=== PATIENT | female | born 1945 | race Caucasian/White ===

== ENCOUNTER → 2017-02-20 | Day surgery (SDC) | payer MEDICARE ==
[~2017-02-20] MED LIST: ASPI81TA82 PO; BUPIVACAINE/EPINEPHRINE 0.5% PF 10 ML VIAL ONE; CALTTAB2 PO; CENTTAB9 PO; COQ1150C2 PO; GLUC500C4 PO; GLUCTAB PO; HEPARIN SODIUM - IV 10,000 UNITS/10 ML VIAL ONE; HYZA100T6 PO; LOTR5CAP3 PO; MIDAZOLAM HCL 2 MG/2 ML VIAL ONE; MOME17I; PROP80CA PO; PROPOFOL 500 MG/50 ML BTL IV ONE; RANI150 PO; SM F10002 PO; SODIUM CHLOR 0.9% 250 ML INJ 250 ML IV ONE; SODIUM CHLORIDE 0.9% INJ 10 ML ONE; VAGI10TA PV; VANCOMYCIN HCL 1000 MG VIAL ONE
--- NOTE | 2017-02-20 12:36 | TN ---
cc: MARYJANE ANGELES M.D. DATE OF SURGERY: 02/20/2017 PREOPERATIVE DIAGNOSIS Metastatic left breast cancer. POSTOPERATIVE DIAGNOSIS Metastatic left breast cancer. PROCEDURE PERFORMED Right subclavian Scfzug-J-Wrlf with intraoperative fluoroscopy. SURGEON Maryjane Angeles MD ANESTHESIA TIVA with local. COMPLICATIONS None. INDICATION FOR PROCEDURE Ms. Russell is a pleasant 71-year-old female who unfortunately has metastatic left breast cancer. She requires chemotherapy. She was referred back for Qtkvlv-Y-Yila placement. Risks and benefits of Hkrxwz-L-Hnzh placement was discussed with her and . They were agreeable. DETAILS OF PROCEDURE The patient was identified, brought to the operating room and placed supine on the operating table. After adequate IV sedation was achieved the anterior neck and chest was prepped and draped in standard surgical fashion. 0.25% Marcaine was injected in the skin and subcutaneous tissue around the right infraclavicular area. 18 gauge needle was then used to access the right subclavian vein without any difficulty. Guidewire was advanced and followed to the level of the superior vena cava using direct fluoroscopy. Next, a subcutaneous pocket was fashioned in the right anterior chest using blunt and sharp dissection. An introducer was then placed over the guidewire and followed with fluoroscopy to the superior vena cava. Guidewire was then removed and the catheter was advanced about 16 cm. This placed it at the junction of the right atrium. The catheter was then pulled down into the subcutaneous pocket and attached to the port with a locking device. The port was tested and found to have excellent blood return, easy ability to flush. The port was then secured in the subcutaneous pocket using a 2-0 Prolene x2. Pocket was then injected with additional local anesthetic. Wound was then closed in two layers using a 4-0 Vicryl. Sterile dressings were applied and the patient was awakened and brought to recovery in stable condition. MD DOROTHY Ross/DESIREL /12:16 PM /12:23 PM
== END | disposition home or self-care (01) ==
LOC: ESDC 10:19
PROVIDERS: ATTEND Surgery Trauma Surgery
DX: Z45.2 Encounter for adjustment and management of vascular access device (principal); C50.912 Malignant neoplasm of unspecified site of left female breast
CPT/HCPCS: 00532; 36561; 77001; C1788; J1644; J2250; J3010; J3370; J7050

== ENCOUNTER 2017-05-10 18:32 | Emergency (ER) | payer MEDICARE, OTHER ==
[~2017-05-10] VITALS: Ht 160 cm; Wt 71.0 kg
[~2017-05-10 18:32] MED LIST changes: -BUPIVACAINE/EPINEPHRINE 0.5% PF 10 ML VIAL ONE; -HEPARIN SODIUM - IV 10,000 UNITS/10 ML VIAL ONE; -MIDAZOLAM HCL 2 MG/2 ML VIAL ONE; -PROPOFOL 500 MG/50 ML BTL IV ONE; -SODIUM CHLOR 0.9% 250 ML INJ 250 ML IV ONE; -SODIUM CHLORIDE 0.9% INJ 10 ML ONE; -VANCOMYCIN HCL 1000 MG VIAL ONE
[2017-05-10 18:36] VITALS: BP 122/59; PULSE 87; RESP 16; TEMP 99.7; O2SAT 97
[2017-05-10 19:04] VITALS: BP 131/63; PULSE 80; RESP 20; O2SAT 97
[2017-05-10] MEDS ORDERED: DEXT 5%-NACL 0.45% 1000 ML INJ 1,000 ML IV SCH (20:15)
--- NOTE | 2017-05-10 20:21 | PD ---
HPI Chief Complaint: Cardiac Complaint Time Seen by Provider: 19:16 Travel History International Travel<30 days: No Contact w/Intl Traveler<30days: No Traveled to known affect area: No History of Present Illness HPI Patient is a 71-year-old female who is receiving chemotherapy just finished her last round on 27 April 2 weeks ago. She received the next day and Neulasta Neupogen injection. She said last night she was having rapid heart rate at a rate of 80 bpm she felt irregular palpitations in her neck. They passed and this morning she did not have the symptoms however she read in her chemotherapy side effect book that if she had the symptoms it could be a sign of anemia and to call her doctor. In the ER she has no complaints at this time she felt an irregular heartbeat mostly in her neck more than her chest there was no radiation dose no squeezing chest pain it was just an irregular palpation sensation . she was not orthostatic patient reports that there was one reading where her blood pressure was 80/40 however in the ER on the monitor heart rate is at 80 bpm and her blood pressure is 131/60. Patient reports she called her oncologist yuri to report that she had a low-grade fever of 100.5. Was told to start Cipro twice a day which she is in the middle of taking. Patient has no fever at this time. In the ER she is normal vitals no fever and no complaints PFSH Past Medical History Arthritis: Yes Autoimmune Disease: No Anxiety: No Depression: No Heart Rhythm Problems: Yes (PALPATATIONS) Cancer: Yes (L breast) Cardiovascular Problems: Yes (palpitations, HTN) Chemotherapy: Yes Diabetes: Yes (Metformin) Patient Takes Glucophage: Yes Diminished Hearing: No Endocrine: Yes Gastrointestinal Disorders: Yes GERD: Yes Genitourinary: No Hypertension: Yes Immune Disorder: No Implanted Vascular Access Dvce: Yes (R SC port) Musculoskeletal: Yes Neurologic: No Psychiatric: Yes (CLALUSTRAPHOBIA) Reproductive: No Respiratory: No Tetanus Vaccination: > 5 Years Influenza Vaccination: No ?: Not Menopausal: Yes Past Surgical History Gynecologic Surgery: Yes (D & C) Pacemaker: No Other Surgery: Yes Social History Alcohol Use: No Tobacco Use: No Substance Use: No Allergies-Medications (Allergen,Severity, Reaction): Coded Allergies: Sulfa (Sulfonamide Antibiotics) (Unverified Allergy, Severe, HIVES, SWELLING, 02/05/17) penicillin G (Unverified Allergy, Severe, HIVES, SWELLING, 02/05/17) Uncoded Allergies: CLAMS (Adverse Reaction, Severe, VOMITING, 02/04/12) Reported Meds & Prescriptions Reported Meds & Active Scripts Active Reported Glucosamine/Chondroitin P (Glucosamine-Chondroitin) 1 Tab Tab 1 Tab PO BID Sm Flax Seed Oil (Flaxseed) 1,000 Mg Cap 2,000 Mg PO DAILY Coq10 (Coenzyme Q10) 150 Mg Cap 150 Mg PO BID Zantac (Ranitidine HCl) 150 Mg Tab 150 Mg PO BID Aspir-81 (Aspirin) 81 Mg Tab 81 Mg PO DAILY Caltrate 600/Vitamin D 400 (Calcium/Vitamin D) 1 Tab Tab 1 Tab PO DAILY Centrum (Multivitamins) Tab 1 Tab PO DAILY Vagifem (Estradiol) 10 Mcg Tab 10 Mcg PV 2X/ WEEK Metformin Hcl (Metformin HCl) 500 Mg Tab 500 Mg PO BIDAC Nasonex (Mometasone Furoate) 17 Gm [place] 1 Spr NA DAILY Hyzaar 100-25 (Losartan Potassium-Hct 100-25) 100 Mg/25 Mg Tab 1 Tab PO DAILY Lotrel 5/20 (Amlodipine Besylate-Benazepril 5MG/20MG) 5 - Cap 1 Cap PO DAILY Propranolol Hcl Er (Propranolol Hcl) 80 Mg Cap 80 Mg PO DAILY Review of Systems Except as stated in HPI: all other systems reviewed are Neg Cardiovascular: Positive: Palpitations, Irregular Rhythm Physical Exam Narrative GENERAL: Patient is obviously without hair due to her chemotherapy wearing a reverse isolation mask herself SKIN: Warm and dry. HEAD: Atraumatic. Normocephalic. She has scalp without hair EYES: Pupils equal and round. No scleral icterus. No injection or drainage. ENT: No nasal bleeding or discharge. Mucous membranes pink and moist. NECK: Trachea midline. No JVD. CARDIOVASCULAR: Regular rate and rhythm. Heart rate 81 blood pressure 131/60 RESPIRATORY: No accessory muscle use. Clear to auscultation. Breath sounds equal bilaterally. GASTROINTESTINAL: Abdomen soft, non-tender, nondistended. Hepatic and splenic margins not palpable. MUSCULOSKELETAL: Extremities without clubbing, cyanosis, or edema. No obvious deformities. NEUROLOGICAL: Awake and alert. No obvious cranial nerve deficits. Motor grossly within normal limits. Five out of 5 muscle strength in the arms and legs. Normal speech. PSYCHIATRIC: Appropriate mood and affect; insight and judgment normal. Data Data Last Documented VS Vital Signs Date Time Temp Pulse Resp B/P (MAP) Pulse Ox O2 Delivery O2 Flow Rate FiO2 05/10/17 23:33 05/10/17 21:35 77 18 95 05/10/17 18:36 99.7 Orders Orders Complete Blood Count With Diff (05/10/17 20:05) Comprehensive Metabolic Panel (05/10/17 20:05) Troponin I (05/10/17 20:05) Lipase (05/10/17 20:05) Urinalysis - C+S If Indicated (05/10/17 20:05) Chest, Pa & Lat (05/10/17 ) Dext 5%-Nacl 0.45% 1000 Ml Inj (D5w-1/2 (05/10/17 20:15) Electrocardiogram (05/10/17 ) Ct Pulmonary Angiogram (05/10/17 ) Ct Facial Bones W/O Iv Cont (05/10/17 ) Ct Brain W/O Iv Contrast(Rout) (05/10/17 ) Iohexol 350 Inj (Omnipaque 350 Inj) (05/10/17 23:00) Ed Discharge Order (05/10/17 23:30) Labs Laboratory Tests Test 05/10/17 20:00 White Blood Count 24.9 TH/MM3 Red Blood Count 2.67 MIL/MM3 Hemoglobin 8.0 GM/DL Hematocrit 23.9 % Mean Corpuscular Volume 89.6 FL Mean Corpuscular Hemoglobin 29.8 PG Mean Corpuscular Hemoglobin Concent 33.3 % Red Cell Distribution Width 17.2 % Platelet Count 409 TH/MM3 Mean Platelet Volume 7.8 FL Neutrophils (%) (Auto) 89.7 % Lymphocytes (%) (Auto) 4.2 % Monocytes (%) (Auto) 5.5 % Eosinophils (%) (Auto) 0.2 % Basophils (%) (Auto) 0.4 % Neutrophils # (Auto) 22.4 TH/MM3 Lymphocytes # (Auto) 1.1 TH/MM3 Monocytes # (Auto) 1.4 TH/MM3 Eosinophils # (Auto) 0.0 TH/MM3 Basophils # (Auto) 0.1 TH/MM3 CBC Comment AUTO DIFF Differential Total Cells Counted 100 Neutrophils % (Manual) 58 % Band Neutrophils % 19 % Lymphocytes % 3 % Monocytes % 5 % Neutrophils # (Manual) 22.9 TH/MM3 Metamyelocytes 5 % Myelocytes 9 % Promyelocytes 1 % Differential Comment FINAL DIFF MANUAL Toxic Granulation 1+ Dohle Bodies PRESENT Platelet Estimate NORMAL Platelet Morphology Comment NORMAL Stomatocytes 1+ Urine Color YELLOW Urine Turbidity CLEAR Urine pH 6.0 Urine Specific [place] 1.009 Urine Protein NEG mg/dL Urine Glucose (UA) NEG mg/dL Urine Ketones NEG mg/dL Urine Occult Blood NEG Urine Nitrite NEG Urine Bilirubin NEG Urine Urobilinogen LESS THAN 2.0 MG/DL Urine Leukocyte Esterase SMALL Urine RBC 0-3 /hpf Urine WBC 0-2 /hpf Urine Squamous Epithelial Cells 0-5 /hpf Urine Amorphous Sediment RARE Microscopic Urinalysis Comment CULT NOT INDICATED Blood Urea Nitrogen 17 MG/DL Creatinine 1.26 MG/DL Random Glucose 94 MG/DL Total Protein 6.8 GM/DL Albumin 3.0 GM/DL Calcium Level 9.0 MG/DL Alkaline Phosphatase 150 U/L Aspartate Amino Transf (AST/SGOT) 23 U/L Alanine Aminotransferase (ALT/SGPT) 35 U/L Total Bilirubin 0.3 MG/DL Sodium Level 132 MEQ/L Potassium Level 3.3 MEQ/L Chloride Level 97 MEQ/L Carbon Dioxide Level 26.9 MEQ/L Anion Gap 8 MEQ/L Estimat Glomerular Filtration Rate 42 ML/MIN Troponin I LESS THAN 0.02 NG/ML Lipase 217 U/L [facility] Medical Decision Making Medical Screen Exam Complete: Yes Emergency Medical Condition: Yes Interpretation(s) EKG inverted t waves in V2 NSR rate80 bpm Differential Diagnosis Pulmonary embolism versus occult infection versus cardiac arrhythmia Narrative Course Labs are all normal except she has a 25 white count and her serum. Compared to 2 days ago 3 days ago the lab was white count WBC was 1.5 there is an elevation I call and speak to Dr. Jeffery roberson who does not feel it is worrisome thought may be a PE should be ruled out. CTA is done and there is no PE and no occult pneumonia. Patient is discharged follow-up Dr. Kameron Nieves on Saturday and to return if any worsening of symptoms. She is afebrile in the ER her heart rate is been 80 bpm the entire time. EKG is without any arrhythmia. Chest x-ray was negative Diagnosis Primary Impression: Heart palpitations Patient Instructions: General Instructions, Heart Palpitations (ED) Disposition: 01 DISCHARGE HOME Condition: Good Yinka Bundy MD May 10, 2017 20:21
[2017-05-10 20:32] LABS: BLOOD, URINE NEG (NEG); GLUCOSE,URINE NEG (NEG); KETONE, URINE NEG (NEG); NITRITE,URINE NEG (NEG); URINE COLOR YELLOW (YELLW/STRAW)
[2017-05-10 20:42] LABS: AUTOMATED NEUTROPHIL # 22.4 TH/MM3 (1.8-7.7); BASOPHIL # 0.1 TH/MM3 (0-0.2); BASOPHIL % 0.4 % (0.0-2.0); EOSINOPHIL % 0.2 % (0.0-4.0); HEMATOCRIT 23.9 % (35.0-46.0); LYMPH % 4.2 % (9.0-44.0); LYMPHOCYTE # 1.1 TH/MM3 (1.0-4.8); MEAN CELL VOLUME 89.6 FL (80.0-100.0); MEAN CORPUSCULAR HEMOGLOBIN 29.8 PG (27.0-34.0); MEAN CORPUSCULAR HGB CONC 33.3 % (32.0-36.0); MONO % 5.5 % (0.0-8.0); NEUT % 89.7 % (16.0-70.0); PLATELET COUNT 409 TH/MM3 (150-450); RED BLOOD COUNT 2.67 MIL/MM3 (4.00-5.30); RED CELL DISTRIBUTION WIDTH 17.2 % (11.6-17.2); WHITE BLOOD COUNT 24.9 TH/MM3 (4.0-11.0)
[2017-05-10 20:48] LABS: HEMO FLAGS AUTO DIFF
[2017-05-10 20:52] LABS: ALT (GPT) 35 U/L (10-53); ANION GAP 8 MEQ/L (5-15); AST (GOT) 23 U/L (15-37); BICARBONATE 26.9 MEQ/L (21.0-32.0); BLOOD UREA NITROGEN 17 MG/DL (7-18); CHLORIDE 97 MEQ/L (98-107); GLOMERULAR FILTRATION RATE 42 ML/MIN (>89); POTASSIUM 3.3 MEQ/L (3.5-5.1); SODIUM (NA) 132 MEQ/L (136-145)
[2017-05-10 20:56] LABS: RBC, URINE 0-3 /hpf (0-3); WBC, URINE 0-2 /hpf (0-5)
[2017-05-10 20:57] LABS: ALKALINE PHOSPHATASE 150 U/L (45-117); SQUAMOUS EPITHELIAL CELL URINE 0-5 /hpf (0-5); TOTAL BILIRUBIN ADULT 0.3 MG/DL (0.2-1.0)
[2017-05-10 20:58] LABS: COMMENT (UR) CULT NOT INDICATED; CULTURE IF INDICATED CULT NOT INDICATED
[2017-05-10 21:35] VITALS: BP 113/56; PULSE 77; RESP 18; O2SAT 95
[2017-05-10 21:38] LABS: BANDS 19 % (0-6); METAMYELOCYTES 5 % (0-1); MYELOCYTES 9 % (0-0); NEUTROPHIL # MANUAL DIFF 22.9 TH/MM3 (1.8-7.7); POLYS (SEG NEUTROPHILS) 58 % (16-70); PROMYELOCYTES 1 % (0-0); WBC DIFF SAMPLE 100
[2017-05-10 21:40] LABS: STOMATOCYTES 1+ (NORMAL)
[2017-05-10 21:41] LABS: DOHLE BODIES PRESENT (NONE SEEN); PLATELET ESTIMATE SMEAR NORMAL (NORMAL); PLATELET MORPHOLOGY NORMAL (NORMAL); SCAN/DIFF FINAL DIFF MANUAL; TOXIC GRANULATION 1+ (NORMAL)
--- NOTE | 2017-05-10 21:47 | RADRPT ---
EXAM DATE/TIME: 05/10/2017 20:18 [facility] COMPARISON: No previous studies available for comparison. INDICATIONS : Palpitations started yesterday. MEDICAL HISTORY : Hypertension. Diabetes mellitus type II. Breast cancer. SURGICAL HISTORY : Port. Left breast removed. ENCOUNTER: Initial ACUITY: 2 days PAIN SCORE: 0/10 LOCATION: Bilateral chest FINDINGS: The heart size is normal. The lungs are clear. No effusion is seen. Spurs are seen in the thoracic sp ine. There is Lvnowi-k-Zzaw in place from the right subclavian approach. There is a peripherally calc ified density in the right upper quadrant which may be related to a gallstone. CONCLUSION: No acute cardiopulmonary process. Freddy Freedman MD on May 10, 2017 at 21:44 Board Certified Radiologist. This report was verified electronically.
[2017-05-10] MEDS ORDERED: IOHEXOL 350 MG/ML 10 ML VIAL (for RAD DIAG) IVCONTRAST ONE (23:00)
--- NOTE | 2017-05-10 23:05 | RADRPT ---
EXAM DATE/TIME: 05/10/2017 22:35 [facility] COMPARISON: No previous studies available for comparison. INDICATIONS : Elevated white count; patient on chemo. RADIATION DOSE: 56.35 CTDIvol (mGy) MEDICAL HISTORY : Carcinoma, breast. Hypertension. Diabetes mellitus type 2. SURGICAL HISTORY : Mastectomy, left. ENCOUNTER: Initial ACUITY: 1 day PAIN SCALE: 5/10 LOCATION: cranial TECHNIQUE: Multiple contiguous axial images were obtained of the head. Using automated exposure control and adj ustment of the mA and/or kV according to patient size, radiation dose was kept as low as reasonably a chievable to obtain optimal diagnostic quality images. DICOM format image data is available electro nically for review and comparison. FINDINGS: CEREBRUM: The ventricles are normal for age. No evidence of midline shift, mass lesion, hemorrhage or acute in farction. No extra-axial fluid collections are seen. POSTERIOR FOSSA: The cerebellum and brainstem are intact. The 4th ventricle is midline. The cerebellopontine angle i s unremarkable. EXTRACRANIAL: The visualized portion of the orbits is intact. SKULL: The calvaria is intact. No evidence of skull fracture. CONCLUSION: Negative noncontrast CT brain. Davian Saavedra MD on May 10, 2017 at 23:03 Board Certified Radiologist. This report was verified electronically.
--- NOTE | 2017-05-10 23:10 | RADRPT ---
EXAM DATE/TIME: 05/10/2017 22:34 [facility] COMPARISON: No previous studies available for comparison. INDICATIONS : Elevated white count with facial pain; rule out sinus infection or tumor. Patient is currently being treated for breast cancer. RADIATION DOSE: 30.68 CTDIvol (mGy) MEDICAL HISTORY : Carcinoma, breast. Diabetes mellitus type 2. Hypertension. SURGICAL HISTORY : Mastectomy, left. ENCOUNTER: Initial ACUITY: 1 day PAIN SCORE: 5/10 LOCATION: facial TECHNIQUE: Volumetric scanning of the facial bones was performed. Using automated exposure control and adjustme nt of the mA and/or kV according to patient size, radiation dose was kept as low as reasonably achiev able to obtain optimal diagnostic quality images. DICOM format image data is available electronicall y for review and comparison. FINDINGS: ORBITS: The orbital and infraorbital osseous structures are intact. The retroconal structures have a normal configuration. No radiopaque foreign bodies are seen. NASAL BONE: The nasal bone and maxillary spine are intact ZYGOMATIC ARCHES: Symmetric without evidence of fracture. SINUSES: Mild mucosal thickening in the inferior left maxillary sinus measuring 5 mm in thickness. No air-flu id levels seen. The remainder of the paranasal sinuses are clear. NASAL CAVITY: The nasal septum is intact and midline. The lacrimal ducts are intact. SOFT TISSUES: There are several nonenlarged lateral compartment nodes measuring up to 8 mm. No subcutaneous soft t issue swelling or thickening. INTRACRANIAL: No intracranial air seen. CRIBIFORM PLATE: Grossly intact. CONCLUSION: 1. Mild left maxillary sinus disease. 2. The facial bones are grossly intact. Davian Saavedra MD on May 10, 2017 at 23:06 Board Certified Radiologist. This report was verified electronically.
--- NOTE | 2017-05-10 23:14 | RADRPT ---
EXAM DATE/TIME: 05/10/2017 22:43 [facility] COMPARISON: CT SIMULATION, May 08, 2017, 11:21. INDICATIONS : Heart palpitations; rule out pulmonary embolus. Patient is currently being treated for breast cancer . IV CONTRAST: 75 cc Omnipaque 350 (iohexol) IV RADIATION DOSE: 11.69 CTDIvol (mGy) MEDICAL HISTORY : Carcinoma, breast. Diabetes mellitus type 2. Hypertension. SURGICAL HISTORY : Mastectomy, left. ENCOUNTER: Initial ACUITY: 1 day PAIN SCALE: 0/10 LOCATION: chest TECHNIQUE: Volumetric scanning of the chest was performed using a pulmonary embolism protocol MIP images were re constructed. Using automated exposure control and adjustment of the mA and/or kV according to patien t size, radiation dose was kept as low as reasonably achievable to obtain optimal diagnostic quality images. DICOM format image data is available electronically for review and comparison. Follow-up recommendations for detected pulmonary nodules are based at a minimum on nodule size and pa tient risk factors according to Fleischner Society Guidelines. FINDINGS: PULMONARY ARTERIES: No filling defects are seen in the pulmonary arteries through the segmental level. LUNGS: There is no consolidation or pneumothorax. Mild scarring or atelectasis in the lower lungs. PLEURAE: There is no pleural thickening or pleural effusion. MEDIASTINUM: There is good visualization of the great vessels of the middle mediastinum. No evidence of mediastin al or hilar adenopathy/mass. MUSCULOSKELETAL: No destructive lesions seen. MISCELLANEOUS: 2.2 cm low density nodule in the right lobe of the thyroid. Elongated soft tissue density in the lef t breast measuring 10.0 x 2.0 cm, mean CT density 15 Hounsfield units, and characteristic of postsurg ical changes in the left breast. No evidence of axillary adenopathy. CONCLUSION: 1. The study is negative for pulmonary embolism. 2. No evidence of pleural effusion. 3. 2 cm right thyroid nodule. Davian Saavedra MD on May 10, 2017 at 23:09 Board Certified Radiologist. This report was verified electronically.
--- NOTE | 2017-05-11 09:19 | EKG ---
Date Performed: 05/10/2017 Time Performed: 20:48:30 PTAGE: 71 years EKG: Sinus rhythm LOW QRS VOLTAGE IN PRECORDIAL LEADS Compared to prior tracing no significant change BORDERLINE ECG PREVIOUS TRACING : 02/04/2012 08.48 DOCTOR: Suhail Jules Interpretating Date/Time 05/11/2017 09:18:01
== END 2017-05-10 23:57 | disposition home or self-care (01) ==
LOC: NEPC 18:32
DX: C50.912 Malignant neoplasm of unspecified site of left female breast (principal); R00.2 Palpitations; E11.9 Type 2 diabetes mellitus without complications; I10 Essential (primary) hypertension; Z79.84 Long term (current) use of oral hypoglycemic drugs
CPT/HCPCS: 70450; 70486; 71020; 71275; 80053; 81001; 83690; 84484; 85007; 85027; 93005; 99285; Q9967